=== PATIENT | male | born 1965 | race Caucasian/White ===

== ENCOUNTER 2016-11-14 05:27 | Observation (INO) | payer OTHER ==
--- NOTE | ~2016-11-14 | TEE ---
Transesophageal Echocardiogram [facility] [address] [place]. [address] NAME: СВЕТЛАНА FRY MD CHUN : 61 STATUS : REG REF PAT#: [id number] AGE: 51 ADM/REG DATE : 11/14/16 MR#: [id number] REPORT SERV DATE: 11/14/16 DICTATED BY: DATE: REPORT STATUS : Draft TRANSCRIBED BY: MODL DATE: 11/14/16 CHIEF COMPLAINT/REASON FOR STUDY: Atrial fibrillation. Written informed consent obtained. Please see chart for documentation. PROCEDURE: With the assistance of my anesthesia colleagues, Dr. Fry was sedated for the procedure. The transesophageal probe was placed with one attempt without complications. Salient 2D echocardiographic windows were obtained including color and spectral Doppler measurements. 1. The left ventricular systolic function is moderately decreased with a calculated ejection fraction of 39% via Palmer's method. The left ventricle is normal in size and wall thickness. 2. The right ventricle appeared normal in size and systolic function. 3. The left atrium appeared dilated in size. 4. The right atrium appeared normal in size. 5. The left atrial appendage was interrogated at multiple levels and depths. There was no evidence of left atrial or left atrial appendage thrombus. Doppler velocities within the left atrial appendage ranged between 35 to 60 cm/second. 6. The mitral valve leaflets appeared mildly thickened. There was mild posterior mitral valve prolapse (P2 leaflet) with trivial associated mitral valvular regurgitation via color and spectral Doppler assessment. 7. The mitral valve was normal with preserved systolic function. There was tricuspid valve regurgitation seen with color Doppler assessment. 8. The aortic valve was normal and trileaflet. There was no evidence of aortic stenosis or regurgitation seen with color Doppler assessment. 9. The pulmonary valve was well visualized with no evidence of pulmonary valvular regurgitation. The valve opened normally. 10.The aorta appeared normal without significant atherosclerotic plaque. 11.The pericardium was normal. No pericardial effusion is seen. 12.The interatrial septum was normal. There was no evidence of patent foramen ovale or atrial septal defect with 2D or color Doppler assessment. 13.The right superior and left superior pulmonary veins were visualized. There was no evidence of pulmonary vein systolic flow reversal in the right upper pulmonary vein. IMPRESSION: 1. Moderately decreased left ventricular systolic function with a calculated ejection fraction of 39% via Palmer's method. 2. Dilated left atrium. 3. No evidence of left atrial or left atrial appendage thrombus. 4. Trivial mitral and tricuspid valvular regurgitation. LOCATED [facility]IN [facility] L[facility] Morena Transesophageal Echocardiogram [address] [place] [address] NAME: СВЕТЛАНА FRY MD : 61 STATUS : REG REF PAT#: [id number] AGE: 51 ADM/REG DATE : 11/14/16 MR#: [id number] REPORT SERV DATE: 11/14/16 DICTATED BY: DATE: REPORT STATUS : Draft TRANSCRIBED BY: HALI DATE: 11/14/16 Jennifer Tineo / [id number] CC: Jennifer Grady Jr., M.D.
[~2016-11-14 05:27] MED LIST: ASAB PO; CO Q-10200 MG PO; COREG12 PO; MULTIPLE VIT PO; NEXIUM40 PO; RYTHMOL SR325 MG PO; RYTHMOL300 MG PO; XARELTO20 MG PO
[2016-11-14 06:10] LABS: BASOPHILS 0.9 %; BASOPHILS ABSOLUTE 0.05 10/3/uL (0.0-0.16); EOSINOPHILS 4.4 %; EOSINOPHILS ABSOLUTE 0.24 10/3/uL (0.0-0.53); HEMATOCRIT 46.1 % (40.0-51.0); HEMOGLOBIN 16.2 g/dL (13.6-17.8); IMMATURE GRANULOCYTES 0.2 %; IMMATURE GRANULOCYTES ABSOLUTE 0.01 10/3/uL (0.0-0.11); LYMPHOCYTES 31.1 %; LYMPHOCYTES ABSOLUTE 1.71 10/3/uL (0.67-4.30); MEAN CORPUS HGB CONC 35.1 g/dL (32.0-36.0); MEAN CORPUSCULAR HEMOGLOB 30.1 pg (26.0-34.0); MEAN CORPUSCULAR VOLUME 85.5 fL (80-100); MEAN PLATELET VOLUME 9.6 fL (9.2-13.0); MONOCYTES 10.7 %; MONOCYTES ABSOLUTE 0.59 10/3/uL (0.21-1.20); NEUTROPHILS 52.7 %; NEUTROPHILS ABSOLUTE 2.89 10/3/uL (2.02-8.40); PLATELET COUNT 278 10/3/uL (150-400); RBC DISTRIBUTION WIDTH 14.3 % (12.0-16.0); RED CELL COUNT 5.39 10/6/uL (4.7-6.1); WHITE BLOOD CELLS 5.5 10/3/uL (4.5-10.5)
[2016-11-14 06:13] LABS: MANUAL DIFF NO %
[2016-11-14 06:22] LABS: BUN (BLOOD UREA NITROGEN) 11 MG/DL (6-23); CALCIUM, SERUM 9.3 MG/DL (8.5-10.4); CHLORIDE, SERUM 109 MMOL/L (96-112); CO2 (CARBON DIOXIDE) 25 MMOL/L (24-34); CREATININE 0.98 MG/DL (0.70-1.30); GFR AFRICAN AMERICAN 102 ML/MIN (>=60); GFR NON AFRICAN AMERICAN 88 ML/MIN (>=60); GLUCOSE, SERUM 106 MG/DL (60-99); SODIUM, SERUM 143 MMOL/L (135-148)
== END 2016-11-15 08:45 | disposition home or self-care (01) ==
LOC: CORLMH 05:27 → SSU1 05:31
PROVIDERS: Internal Medicine Cardiovascular Disease
DX: I48.0 Paroxysmal atrial fibrillation (principal); K21.9 Gastro-esophageal reflux disease without esophagitis; I71.2 Thoracic aortic aneurysm, without rupture; I48.3 Typical atrial flutter; Z79.899 Other long term (current) drug therapy; Z79.01 Long term (current) use of anticoagulants
CPT/HCPCS: 80048; 82962; 85025; 85347; 93005; 93312; 93320; 93325; 93613; 93655; 93656; 93662; 96374; 96375; 96376; A9270-GY; C1732; C1759; C1781; C1894; C9113; G0378; J1170; J2250; J2270; J2370; J2405; J2710; J2720; J3010; Q9967